=== PATIENT | male | born 1960 | race Caucasian/White ===

== ENCOUNTER 2019-01-01 10:08 | Outpatient (CLI) | payer BC | END 2019-01-01 23:59 | disposition home or self-care (01) | LOC: STAR 10:08 | PROVIDERS: ATTEND Surgery | DX: Z01.818 Encounter for other preprocedural examination (principal); K40.90 Unilateral inguinal hernia, without obstruction or gangrene, not specified as recurrent | CPT/HCPCS: 36415; 80053; 85025; 93005 ==

== ENCOUNTER 2019-01-10 11:41 | Day surgery (SDC) | payer BC ==
[~2019-01-10] VITALS: Ht 172.7 cm; Wt 70.6 kg
[~2019-01-10 11:41] MED LIST: BUPIVACAINE/PF 0.25% ONE; EPINEPHRINE 1 MG/ML, 1ML ONE; No meds per pt.
[2019-01-10 12:29] VITALS: BP 120/78
[2019-01-10] MEDS ORDERED: LACTATED RINGERS 1,000 ML IV SCH (12:33)
[2019-01-10] MEDS ORDERED: FENTANYL PF 100 MCG/2ML ONE ×2 (13:18→15:07)
[2019-01-10] MEDS ORDERED: MIDAZOLAM 1 MG/ML, 2ML ONE (13:18)
[2019-01-10] MEDS ORDERED: hydrALAzine 20 MG/ML, 1ML IV PRN (14:00)
[2019-01-10] MEDS ORDERED: MEPERIDINE/PF 25MG/0.5ML IVPush PRN (14:00)
[2019-01-10] MEDS ORDERED: ACETAMINOPHEN 325 MG TABLET PO PRN (14:00)
[2019-01-10] MEDS ORDERED: ALBUTEROL SULFATE 2.5 MG/3 ML NPPB PRN (14:00)
[2019-01-10] MEDS ORDERED: LABETALOL 5 MG/ML SYR. (IV ONLY) IV PRN (14:00)
[2019-01-10] MEDS ORDERED: OXYcodone 5 MG/5 ML ORAL.SOL UDC PO PRN (14:00)
[2019-01-10] MEDS ORDERED: PROMETHAZINE 25 MG/ML, 1ML IV PRN (14:00)
[2019-01-10] MEDS ORDERED: HYDROmorphone 2 MG/ML, 1ML IVPush PRN (14:00)
[2019-01-10] MEDS ORDERED: DIAZEPAM 5 MG/ML, 2ML IVPush PRN (14:00)
[2019-01-10] MEDS ORDERED: KETOROLAC 30 MG/1 ML IV PRN (14:00)
[2019-01-10] MEDS ORDERED: ACETAMINOPHEN 650 MG/20.3 ML UDC ONE (15:06)
[2019-01-10] MEDS ORDERED: OXYcodone 5 MG/5 ML ORAL.SOL UDC ONE (15:07)
[2019-01-10] MEDS ORDERED: NEOSTIGMINE 1 MG/ML, 10ML ONE (15:08)
[2019-01-10] MEDS ORDERED: GLYCOPYRROLATE 0.2MG/1ML, 5ML ONE (15:08)
[2019-01-10] MEDS ORDERED: ROCURONIUM 10MG/ML,5ML ONE (15:08)
[2019-01-10] MEDS ORDERED: CEFAZOLIN 1,000 MG ONE (15:08)
[2019-01-10] MEDS ORDERED: ONDANSETRON 2MG/ML, 2ML ONE (15:08)
[2019-01-10] MEDS ORDERED: PROPOFOL 10 MG/ML, 20ML ONE (15:08)
[2019-01-10] MEDS ORDERED: SUCCINYLCHOLINE 20 MG/ML, 10ML ONE (15:08)
[2019-01-10] MEDS ORDERED: DEXAMETHASONE 4 MG/ML, 1ML ONE (15:08)
[2019-01-10] MEDS: FENTANYL PF 100 MCG/2ML IV PRN ×2 (15:12→15:20)
[2019-01-10] MEDS ORDERED: OXYcodone/APAP 5/325MG TABLET ONE (18:44)
== END 2019-01-10 19:00 | disposition home or self-care (01) ==
LOC: OUT 11:41
PROVIDERS: ATTEND Surgery
DX: K40.90 Unilateral inguinal hernia, without obstruction or gangrene, not specified as recurrent (principal); D17.6 Benign lipomatous neoplasm of spermatic cord; Z72.89 Other problems related to lifestyle; Z98.52 Vasectomy status; Z88.2 Allergy status to sulfonamides; Z91.018 Allergy to other foods; Z80.3 Family history of malignant neoplasm of breast
CPT/HCPCS: 49650; C1727; C1781; J0171; J0330; J0690; J1100; J2250; J2405; J2704; J3010; J3490; J7120; J2710